=== PATIENT | male | born 1955 | race Caucasian/White ===

== ENCOUNTER → 2019-07-20 14:31 | Outpatient (BNVA) | payer MEDICARE, MEDICAID, SELFPAY | PROVIDERS: Family Provider Family Medicine; PCP Family Medicine; Visit Provider Family Medicine | DX: E11.9 Type 2 diabetes mellitus without complications (principal); G47.00 Insomnia, unspecified; E53.8 Deficiency of other specified B group vitamins; J44.9 Chronic obstructive pulmonary disease, unspecified; M19.90 Unspecified osteoarthritis, unspecified site | CPT/HCPCS: 80048; 82607; 83036 ==

== ENCOUNTER → 2019-08-21 14:02 | Outpatient (BNVA) | payer MEDICARE, SELFPAY | PROVIDERS: Family Provider Family Medicine; PCP Family Medicine; Visit Provider Family Medicine | DX: N40.0 Benign prostatic hyperplasia without lower urinary tract symptoms (principal); R39.11 Hesitancy of micturition; K59.09 Other constipation | CPT/HCPCS: 81003 ==

== ENCOUNTER → 2019-11-16 14:00 | Outpatient (BNVA) | payer MEDICARE, SELFPAY | PROVIDERS: Family Provider Family Medicine; PCP Family Medicine; Visit Provider Family Medicine | DX: E11.69 Type 2 diabetes mellitus with other specified complication (principal); M19.90 Unspecified osteoarthritis, unspecified site; B35.3 Tinea pedis | CPT/HCPCS: 80053; 83036 ==